=== PATIENT | male | born 1980 | race Caucasian/White ===

== ENCOUNTER 2021-11-24 08:40 | Day surgery (SDC) | payer BC, SELFPAY ==
[~2021-11-24] VITALS: Ht 167.6 cm; Wt 77.1 kg
[2021-11-24] MEDS ORDERED: DESFLURANE 15 MIN GAS INH ONE (10:31)
[2021-11-24] MEDS ORDERED: LIDOCAINE 1% 10 MG/ML, 20 ML MDV INJ ONE (10:31)
[2021-11-24] MEDS ORDERED: SUGAMMADEX SODIUM 200 MG/2 ML VIAL IV ONE (10:31)
[2021-11-24] MEDS ORDERED: OXYMETAZOLINE HCL 0.05% NASAL SPRAY NS ONE (10:31)
[2021-11-24] MEDS ORDERED: NS 1000 ML IV.SOLN IV ONE (10:31)
[2021-11-24] MEDS ORDERED: ROCURONIUM BROMIDE 10 MG/ML (ZEMURON) IV ONE (10:31)
[2021-11-24] MEDS ORDERED: ONDANSETRON HCL 4 MG/2 ML VIAL IVP ONE ×2 (10:31→17:15)
[2021-11-24] MEDS ORDERED: MIDAZOLAM HCL 5 MG/5 ML VIAL IVP ONE (10:31)
[2021-11-24] MEDS ORDERED: DEXAMETHASONE SOD PHOSPHATE 4 MG/ML VIAL IVP ONE (10:31)
[2021-11-24] MEDS ORDERED: WATER FOR IRRIGATION,STERILE 1,000 ML IRRIG.SOLN IR ONE (10:31)
[2021-11-24] MEDS ORDERED: EPINEPHrine 1 MG/ML VIAL IV ONE (10:31)
[2021-11-24] MEDS ORDERED: NS IRRIG SOLN 1000 ML IR ONE (10:31)
[2021-11-24] MEDS ORDERED: PROPOFOL 200MG/ 20ML VIAL (DIPRIVAN) IV ONE (10:31)
[2021-11-24] MEDS ORDERED: fentaNYL CITRATE 250 MCG/5 ML AMP IV ONE (10:31)
[2021-11-24] MEDS ORDERED: METOCLOPRAMIDE HCL 10 MG/2 ML VIAL IVP PRN (11:30)
[2021-11-24] MEDS ORDERED: LABETALOL 100 MG/ 20ML VIAL IVP PRN (11:30)
[2021-11-24] MEDS ORDERED: MIDAZOLAM HCL 2 MG/2 ML VIAL (VERSED) IVP PRN (11:30)
[2021-11-24] MEDS ORDERED: LR 1,000 ML IV SCH (11:30)
[2021-11-24] MEDS ORDERED: MEPERIDINE HCL/PF 25 MG/ML DISP.SYRIN IVP PRN (11:30)
[2021-11-24] MEDS ORDERED: hydrALAZINE HCL 20 MG/ML VIAL IVP PRN (11:30)
[2021-11-24] MEDS ORDERED: HYDROmorphone 1 MG/ML INJ. CARTRIDGE IVP PRN ×2 (11:30)
[2021-11-24] MEDS ORDERED: ACETAMINOPHEN I.V. 1000 MG 100 ML IV ONE (11:53)
[2021-11-24 14:25] VITALS: BP_SYST 125
[2021-11-24] MEDS ORDERED: ONDANSETRON HCL 4 MG/2 ML VIAL ONE (17:17)
== END 2021-11-24 18:40 | disposition home or self-care (01) ==
LOC: SDS 08:40 → SMU 08:45 → SDS 18:40
PROVIDERS: ATTEND Otolaryngology
DX: J34.2 Deviated nasal septum (principal); D38.5 Neoplasm of uncertain behavior of other respiratory organs; J32.4 Chronic pansinusitis; I10 Essential (primary) hypertension; J45.909 Unspecified asthma, uncomplicated; J01.40 Acute pansinusitis, unspecified; K21.9 Gastro-esophageal reflux disease without esophagitis; Z79.899 Other long term (current) drug therapy; Z20.822 Contact with and (suspected) exposure to COVID-19
CPT/HCPCS: 30140; 30520; 31255; 31256; 31298; 36415; 87070; 87075; 87426; 88304; 88305; 88311; C1726; J0131; J2405; J3465; U0003; J0171; J1100; J2001; J2250; J2704; J3010; J3490; J7030